=== PATIENT | female | born 1980 | race Caucasian/White ===

== ENCOUNTER 2020-02-05 21:26 | Emergency (ER) | payer SELFPAY ==
[2020-02-05 21:36] VITALS: BP 139/96; PULSE 105; RESP 17; TEMP 36.7; O2SAT 99; BMI 43.2
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
[2020-02-05] MEDS: ondansetron 4 MG Tablet PO (22:23)
[2020-02-05] MEDS: morphine 4 mg/mL SDV 1 mL IM (22:23)
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
[2020-02-05 23:21] VITALS: BP 145/87; PULSE 88; RESP 16; O2SAT 98
== END 2020-02-05 23:37 | disposition home or self-care (01) ==
PROVIDERS: Emergency Provider Nurse Practitioner Family
DX: S09.93XA Unspecified injury of face, initial encounter (principal); Y04.2XXA Assault by strike against or bumped into by another person, initial encounter
CPT/HCPCS: 12345; 70450; 70486; 72100; 72125; 73000; 73080; 99281; 99283; J2270; Q0162

== ENCOUNTER → 2020-03-20 15:54 | Outpatient (BNVA) | payer OTHER, SELFPAY | PROVIDERS: Visit Provider Nurse Practitioner Family | DX: Z11.59 Encounter for screening for other viral diseases (principal) | CPT/HCPCS: 87635 ==

== ENCOUNTER 2020-05-08 18:02 | Emergency (ER) | payer SELFPAY ==
[2020-05-08 18:12] VITALS: BP 144/101; PULSE 105; RESP 14; TEMP 37; O2SAT 99; BMI 36.6
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
== END 2020-05-08 18:32 | disposition home or self-care (01) ==
PROVIDERS: Emergency Provider Emergency Medicine
DX: M25.561 Pain in right knee (principal); I83.91 Asymptomatic varicose veins of right lower extremity; V89.2XXA Person injured in unspecified motor-vehicle accident, traffic, initial encounter; Z87.891 Personal history of nicotine dependence
CPT/HCPCS: 12345; 99281

== ENCOUNTER → 2020-10-30 16:16 | Outpatient (BNVA) | payer SELFPAY | PROVIDERS: Visit Provider Family Medicine | DX: M25.562 Pain in left knee (principal) | CPT/HCPCS: 73562 ==

== ENCOUNTER 2021-06-05 09:14 | Outpatient (CLI) | payer OTHER, SELFPAY ==
--- NOTE | 2021-06-05 09:30 | MM_ITS ---
WS: [id number] Exam: [place] [id number] Date/Time of Exam: 06/05/2021 9:38 AM Reason For Exam: RT BREAST LUMPS 12 OCLOCK REGION VIEWS: MLO, CC, and ML views both breasts. Magnification spot images of the right breast are obtaine d in the MLO and CC projections. No priors. Findings: There was no sign of mass, architectural distortion or suspicious calcification in either breast. He terogeneously dense MM/[place] [id number] Impression: BI-RADS: 3-Probably Benign FOLLOW-UP: Six-month follow-up right mammogram and ultrasound recommended for sarah uslokesh. This mammogram was also analyzed by the Computer Aided Detection System R2 Imag e [employer].
--- NOTE | 2021-06-05 09:30 | US_ITS ---
WS: [id number] Exam: US breast RT limited* [id number] Date/Time of Exam: 06/05/2021 10:05 AM Reason For Exam: RT BREAST LUMPS 12 OCLOCK REGION Regional ultrasound of the right breast is performed from the 9:00 to the 12:00 position. At the 12:0 0 position a tiny ovoid hypoechoic nodule is identified that measures 0.88 x 0.56 x 0.29 cm. This is most likely a small intramammary lymph node. It does not have suspicious appearance. There is also a subcentimeter cyst at the 9:00 position that measures 0.66 x 0.52 x 0.33 cm. No discrete suspicious m ass or nodule was identified within this area. Recommendations: Continue yearly screening mammography. BI-RADS 2. US/US breast RT limited* [id number] IMPRESSION: 1. Subcentimeter ovoid smoothly marginated hypoechoic nodule at the 12:00 posit ion probably representing an intramammary lymph node. 2. Subcentimeter cyst at the 9:00 position.
== END 2021-06-05 09:15 | disposition home or self-care (01) ==
LOC: RADSHAW 09:23
PROVIDERS: PCP Nurse Practitioner; Visit Provider Nurse Practitioner Family
DX: N63.15 Unspecified lump in the right breast, overlapping quadrants (principal)
CPT/HCPCS: 76642; 77066

== ENCOUNTER 2023-07-05 18:00 | Emergency (ER) | payer SELFPAY ==
[2023-07-05 18:04] VITALS: PULSE 85; RESP 18; TEMP 36.8; O2SAT 98; BMI 38.2
--- NOTE | 2023-07-05 18:04 | ED_ITS ---
HPI - Fall General: Chief Complaint: Back Pain/Injury Stated Complaint: LOW BACK AND LEFT SHOULDER PAIN S/P FALL Time Seen by Provider: 07/05/23 18:04 History of Present Illness: 42-year-old female presents to the emerg ency department via EMS personnel with complaints of low back pain and left shoulder pain. She states she was getting out of her truck slipped and fell approximately 2 feet hitting her lower back and right buttocks/hip area on the ground. She also states that she has left shoulder pain. She states the pain is a 9 out of 10 throbbing aching type pain and is worse if she attempts to stand or move her left arm. She denies numbness or tingling to her extremities. She states she is able to stand but feels like she is having a muscle spasm in her lower back if she does. She denies loss of consciousness. She denies neck or upper back pain. She denies bowel or bladder incontinence or retention. Review of Systems General: Reports: 10 or more systems reviewed and unremarkable except in HPI and below Musc: Reports: back pain and extremity pain [facility] ED PFSH: Medical History (Updated 07/05/23 @ 20:31 by Jose Alfredo Pacheco MD) Uterine cancer Anxiety Surgical History H/O: hysterectomy Family History Other Cancer Social History Smoking and tobacco/nicotine status: former use of tobacco/nicotine Alcohol intake: never Substance/Drug Use: never Physical Exam Narrative: EXAM NARRATIVE: Constitutional: the patient appears well nourished and with normal development. Vital signs reviewed as documented. HENMT: Normocephalic, atraumatic. External ears normal appearance without drainage. Nose without drainage, normal appearance. Mucus membranes moist. Neck is supple, No jugular venous distension, trachea is midline, no appreciable carotid bruits. No lymphadenopathy. No meningeal signs. Flexion, extension and lateral rotation is without pain. Normal alignment, no obvious signs of trauma, nontender to palpation, no vertebral step-offs, no crepitus noted. Eyes: Pupils are equal, round, reactive to light and accommodation. No scleral icterus. Extra-ocular movement are intact. Thorax is symmetrical and with equal rise and fall with respirations. Resp: Lungs are clear to auscultation. No wheezes, rales, crackles or ronchi at present. Cardio: Regular rate and rhythm. Positive S1, S2. No appreciable murmurs, rubs or gallops. GI: Abdominal exam reveals normal bowel sounds to all quadrants. No organomegaly. No obvious palpable masses noted. No hepatomegally appreciated. Soft, non-tender to palpation. Extremity: Extremities are non-edematous and both femoral and pedal pulses are 2+ and equal bilaterally. Moves all extremities well, sensation in all extremities. Neuro: Alert and oriented x4, person, place, time and situation. Cranial nerves II through XII are grossly intact, there is no focal neurological deficits that I can appreciate at present. Motor strength in the upper and lower extremities are equal and bilateral 5/5. Psych: Cooperative, calm, normal thought process, appropriate judgment. Skin: No lesions, rashes. No gross abnormalities noted. Back: Symmetrical, no obvious deformity, No CVA tenderness. Tenderness to palpation to the gluteus on the right. There is no crepitus, vertebral tenderness, palpable step-offs. Course Vital Signs: Vital signs: Vital Signs Temperature 98.2 F 07/05/23 20:47 Pulse Rate 85 07/05/23 20:47 Respiratory Rate 18 07/05/23 20:47 Blood Pressure 146/95 07/05/23 20:47 Pulse Oximetry 98 07/05/23 20:47 Oxygen Delivery Me thod Room Air 07/05/23 18:04 MDM - Fall Medical Decision Making Physical exam completed and documented, I will obtain radiographic examination given the patient's fall and provide her pain medication and muscle relaxer for her discomfort. I will E prescribe her prescriptions for naproxen and Flexeril. Lab Data Radiology Impressions Clavicle X-Ray 07/05/23 18:10 IMPRESSION: No acute plain radiographic abnormality. Hip/Pelvis X-Ray 07/05/23 18:10 IMPRESSION: No acute fracture or dislocation of either hip. Lumbar Spine X-Ray 07/05/23 18:10 IMPRESSION: No acute findings. Shoulder X-Ray 07/05/23 18:10 IMPRESSION: No acute plain radiographic abnormality. All radiology interpretation(s) finalized by discharge Discharge Plan Discharge Patient Disposition: Home Clinical Impression: Accidental fall, Acute bilateral low back pain, Contusion of right hip and thigh, Contusion of arm, left Condition: Stable Prescriptions: New cyclobenzaprine 10 mg tablet 10 mg PO Q8H Qty: 14 0RF naproxen 500 mg tablet 500 mg PO Q12H PRN (Reason: pain) Qty: 20 0RF No Action lisinopril 10 mg tablet 10 mg PO DAILY Qty: 30 3RF aripiprazole [Abilify] 5 mg tablet 5 mg PO DAILY Qty: 30 2RF clonazepam 0.5 mg tablet 0.5 mg PO BID PRN (Reason: anxiety) Qty: 20 0RF Discharge Orders: Discharge ED (Routine); Ordered 07/05/23 Ordered By: Jose Alfredo Pacheco Referrals: [facility], [Occupational Therapist] - Discharge Diet: Advance as tolerated Discharge Activity: Resume usual activity Patient Instructions: Opioid Safety, Pain Management Activity Restrictions/Additional Instructions: Activity Restrictions/Additional Instructions: Thank you for choosing [facility] for your healthcare needs today. Please realize that you were seen in the Emergency Department and that we are providing you with an emergency medical screening exam and this may not be a complete and all inclusive of all the testing and or medical work-up that you may need to determine your ailment or severity of your illness. It is very important that you follow-up as instructed with your Primary care provider or Specialist for additional evaluation and to discuss your medical treatment plan. You may return to the Emergency Department should you have concerns or if your condition changes or worsens in any way. Stand Alone Forms: Work/School Release Coding Level of Care Code ED Locomotive Inspector for Andrew Saleh
--- NOTE | 2023-07-05 18:10 | XRR_ITS ---
PROCEDURE INFORMATION: Exam: XR Lumbosacral Spine Exam date and time: 07/05/2023 6:40 PM Age: 42 years old Clinical indication: Injury or trauma; Fall; Blunt trauma (contusions or hematomas); Prior surgery; Surgery date: 6+ months; Surgery type: Hysterectomy; Patient HX: Fell onto ground stepping out of truck. C/O left shoulder, low back, and bilateral hip pain. ; Additional info: Fall/pain TECHNIQUE: Imaging protocol: Radiologic exam of the lumbosacral spine. Views: 2 or 3 views. COMPARISON: CR XR lumbar spine 2-3V* [id number] 02/05/2020 11:03 PM FINDINGS: Bones/joints: No acute fracture or vertebral loss. Mild -moderate disc space endplate sclerosis and spurring L4-L5. Mild lower lumbar facet arthropathy. Slight dextroscoliosis of the mid to lower lumbar spine. Soft tissues: Unremarkable. XR/XR lumbar spine 2-3V* [id number] IMPRESSION: No acute findings.
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
--- NOTE | 2023-07-05 18:10 | XRR_ITS ---
PROCEDURE INFORMATION: Exam: XR Left Clavicle, Complete Exam date and time: 07/05/2023 6:40 PM Age: 42 years old Clinical indication: Injury or trauma; Fall; Blunt trauma (contusions or hematomas); Patient HX: Fell onto ground stepping out of truck. C/O left shoulder, low back, and bilateral hip pain. ; Additional info: Trauma/fall TECHNIQUE: Imaging protocol: Radiologic exam of the left clavicle. Complete exam. Views: Any number of views. COMPARISON: [place] [id number] 02/05/2020 10:24 PM FINDINGS: Bones/joints: No acute fracture. No AC joint widening or offset. Mild degenerative AC arthropathy. Soft tissues: Normal. XR/[place] [id number] IMPRESSION: No acute plain radiographic abnormality.
--- NOTE | 2023-07-05 18:10 | XRR_ITS ---
PROCEDURE INFORMATION: Exam: XR Left Shoulder Exam date and time: 07/05/2023 6:40 PM Age: 42 years old Clinical indication: Injury or trauma; Fall; Blunt trauma (contusions or hematomas); Patient HX: Fell onto ground stepping out of truck. C/O left shoulder, low back, and bilateral hip pain. ; Additional info: Fall/pain TECHNIQUE: Imaging protocol: Radiologic exam of the left shoulder. Views: 2 or more views. COMPARISON: [place] [id number] 07/05/2023 6:40 PM FINDINGS: Bones/joints: No fracture or dislocation. Minimal degenerative glenoid spurring. Soft tissues: Normal. XR/XR shoulder LT min 2V* [id number] IMPRESSION: No acute plain radiographic abnormality.
[2023-07-05 18:11] VITALS: BP 146/95
[2023-07-05] MEDS: ketorolac 60 mg/2 mL INJ IM (18:37)
[2023-07-05] MEDS: orphenadrine 30 mg/mL Inj 2 mL 60 MG IM (18:38)
[2023-07-05 20:47] VITALS: BP 146/95; PULSE 85; RESP 18; TEMP 36.8; O2SAT 98
== END 2023-07-05 20:48 | disposition home or self-care (01) ==
PROVIDERS: Emergency Provider Internal Medicine
DX: M54.50 Low back pain, unspecified (principal); S70.01XA Contusion of right hip, initial encounter; S70.11XA Contusion of right thigh, initial encounter; S40.022A Contusion of left upper arm, initial encounter; Z85.42 Personal history of malignant neoplasm of other parts of uterus; Z87.891 Personal history of nicotine dependence; W01.0XXA Fall on same level from slipping, tripping and stumbling without subsequent striking against object, initial encounter
CPT/HCPCS: 72100; 73000; 73030; 73522; 96372; 99284; J1885; J2360

== ENCOUNTER → 2024-04-06 13:16 | Outpatient (BNVA) | payer MEDICAID, SELFPAY | PROVIDERS: PCP Nurse Practitioner Family; Visit Provider Nurse Practitioner Family | DX: R32 Unspecified urinary incontinence (principal) | CPT/HCPCS: 81000 ==

== ENCOUNTER → 2024-07-15 12:58 | Outpatient (BNVA) | payer MEDICAID, SELFPAY | PROVIDERS: PCP Nurse Practitioner Family; Visit Provider Nurse Practitioner Family | DX: I10 Essential (primary) hypertension (principal) | CPT/HCPCS: 80053; 80061; 83036; 84443; 85025 ==